=== PATIENT | female | born 1985 | race Hispanic/Latino ===

== ENCOUNTER 2017-04-22 01:28 | Inpatient (IN) | payer MEDICAID ==
[~2017-04-22] VITALS: Ht 157.5 cm; Wt 84.8 kg
[2017-04-22] MEDS ORDERED: Carboprost 250 mCg/mL Inj IM PRN (08:00)
[2017-04-22] MEDS ORDERED: Oxytocin 30 Units/500 mL LR 30 UNITS in IV Premix 1 EACH IV PRN (08:00)
[2017-04-22] MEDS ORDERED: Hemorrhage Kit, Post Partum XX ONE (08:00)
[2017-04-22] MEDS ORDERED: fentaNYL-PF 50 mCg/mL 2 mL Inj IVPUSH PRN (08:00)
[2017-04-22] MEDS ORDERED: Oxytocin 10 Unit/mL Inj IM PRN (08:00)
[2017-04-22] MEDS ORDERED: Methylergonovine 0.2 mg/mL Inj IM PRN (08:00)
[2017-04-22] MEDS ORDERED: Sodium Chloride LOK Flush 10 mL Syringe IVFLUSH PRN (08:00)
[2017-04-22] MEDS ORDERED: Ondansetron 2 mg/mL 2 mL Inj IVPUSH PRN (08:00)
[2017-04-22 08:27] LABS: Mean Corpuscular Hemoglobin 24.1 pg (27.0-35.0); Mean Corpuscular Volume 77.8 fL (81-100)
[2017-04-22] MEDS ORDERED: PREN1TAB87 PO (08:30)
[2017-04-22] MEDS ORDERED: METF850T2 PO (08:30)
[2017-04-22] MEDS ORDERED: Penicillin G K 5,000,000 UNITS/100 ML D5W IV ONE ×2 (08:45)
[2017-04-22] MEDS: Lactated Ringer's 1,000 ML IV PRN (09:14)
--- NOTE | 2017-04-22 17:02 | HP ---
[address] [address] HISTORY AND PHYSICAL PATIENT: MICAH PARRA : 1985 MR#: [id number] ADMIT: 04/22/2017 JOB ID: [id number] DATE OF ADMISSION: 04/22/2017 HISTORY OF PRESENT ILLNESS: The patient is a 31-year-old, 2, para 1, at 39 weeks and 1 day, estimated due date April 28, 2017 who comes to Labor and Delivery for induction of labor at 39+ weeks because of pre-existing type 2 diabetes and suspected macrosomia. MEDICATIONS: Include metformin 850 mg p.o. b.i.d. She has been also taking Excedrin migraine for the headaches and vitamins. The patient has occasional contractions, no complaints. heart rate resting category 1 tracing. Baseline 150 beats per minute. Good accelerations. PAST MEDICAL HISTORY: Type 2 diabetes. ALLERGIES: NKDA. SOCIAL HISTORY: Patient denies smoking, alcohol, or illicit recreational drug use. FAMILY HISTORY: Noncontributory. PHYSICAL EXAMINATION: Vital signs: Blood pressure 116/74, pulse 95, respiratory rate 20, temperature 97.2 Fahrenheit, 36.2 Celsius. General: Awake, alert, oriented x3, in no apparent distress, complaining of occasional cramps, 3/10 intensity. HEENT: PERRLA. Chest: Clear bilaterally. Good respiratory effort. Cardiovascular: Regular rate and rhythm. Abdomen is gravid, nondistended, mildly tender with occasional contractions, fundal height 40 cm. Vaginal exam: The membranes are intact. The cervix is 1-2 cm dilated, 50% effaced, station -3, Park score 3, unfavorable. Extremities: No pitting edema. LABS: WBC count 6.7, hemoglobin 10.2, hematocrit 32.9, platelet count 282. ASSESSMENT AND PLAN: A 31-year-old, 2, para 1, at 39 weeks and 1 day with type 2 diabetes, suspected macrosomia, doing well otherwise. Being admitted for induction of labor. The cervix is unfavorable. Different methods of induction were discussed. Having occasional contractions, decision was made to place Cervidil vaginal inserts and keep the patient on continuous heart rate monitoring, Chemstrips to be checked a.c. and h.s. labs were reviewed. She is group B strep positive, penicillin will be started when she is in active labor.
[2017-04-22] MEDS ORDERED: Penicillin G K 5,000,000 Units Inj ONE (17:22)
[2017-04-22] MEDS ORDERED: Dextrose 5% Minibag Plus 100 ML IV ONE (17:23)
[2017-04-22] MEDS: Penicillin G K Inj 3,000,000 UNITS in IV Premix 1 EACH IV SCH (21:15)
--- NOTE | 2017-04-23 01:59 | PCM.PNOBIP ---
Subjective Date of Service April 23, 2017 Subjective comfortable. Mild irregular contractions. Denies need for pain medications. Activity: Ambulating Independently Labs Laboratory Tests 04/22/17 07:25: White Blood Count 6.7, Red Blood Count 4.23, Hemoglobin 10.2, Hematocrit 32.9, Mean Corpuscular Volume 77.8, Mean Corpuscular Hemoglobin 24.1, Mean Corpuscular Hemoglobin Concent 31.0, Red Cell Distribution Width 14.9, Platelet Count 282 Exam Vital Signs Vital Signs Contraction frequency in minutes: MVUs: Vital Signs: VS reviewed, stable Heart Tracings Heart Tones Baseline 140 bpm Heart Rate Variability: Moderate Heart Rate Accelleration: Present Heart Rate Deceleration: Absent Heart Rate Category: I Tocometry/IUPC Contraction frequency in minutes: MVUs: Sterile Vaginal Exam Cervical Dilation: 1 cm Cervical Effacement: 40 % Station: -2 Exam Abdomen: Abdomen non-tender General: Alert, Oriented X3 OB Intrapartum Assessment/Plan Assessment A 31-year-old, 4, para 3003, at 39 weeks and 2 day with type 2 diabetes, suspected macrosomia. Second Cervidil was placed at 2300 04/22/17. GBS positive PCN started 1730 04/22/17 Ralf Guerrero MD April 23, 2017 01:59
[2017-04-23] MEDS: Penicillin G K Inj 3,000,000 UNITS in IV Premix 1 EACH IV SCH ×5 (02:11→20:27)
[2017-04-23] MEDS: Lactated Ringer's 1,000 ML IV PRN ×4 (05:57→20:40)
--- NOTE | 2017-04-23 18:10 | PCM.PNOBIP ---
Subjective Date of Service April 23, 2017 Subjective More uncomfortable- received one dose of cytotec and then spontaneously ruptured. Requesting epidural. Did have intermittent nonreassuring heart tones with late decels prior to rupture. Pain Management: Epidural Activity: Ambulating Independently Labs Laboratory Tests 04/22/17 07:25: White Blood Count 6.7, Red Blood Count 4.23, Hemoglobin 10.2, Hematocrit 32.9, Mean Corpuscular Volume 77.8, Mean Corpuscular Hemoglobin 24.1, Mean Corpuscular Hemoglobin Concent 31.0, Red Cell Distribution Width 14.9, Platelet Count 282 Exam Vital Signs Vital Signs Contraction frequency in minutes: MVUs: Heart Tracings Heart Tones Baseline 150/moderate/early and variable decels bpm Tocometry/IUPC Contraction frequency in minutes: MVUs: Sterile Vaginal Exam Cervical Dilation: 7 cms Cervical Effacement: 80 % Station: 0 Exam General: Alert, Oriented X3 OB Intrapartum Assessment/Plan Intrapartum plan: Continue expected management Danielle Joyner MD April 23, 2017 18:10
--- NOTE | 2017-04-23 18:21 | PCM.PNOBIP ---
Subjective Date of Service April 23, 2017 Subjective Patient uncomfortable on pitocin- was tima too frequently for cytotec or cervidil. Labs Laboratory Tests 04/22/17 07:25: White Blood Count 6.7, Red Blood Count 4.23, Hemoglobin 10.2, Hematocrit 32.9, Mean Corpuscular Volume 77.8, Mean Corpuscular Hemoglobin 24.1, Mean Corpuscular Hemoglobin Concent 31.0, Red Cell Distribution Width 14.9, Platelet Count 282 Exam Vital Signs Vital Signs Contraction frequency in minutes: MVUs: Heart Tracings Heart Tones Baseline 150 bpm/mod/accels to 160's Tocometry/IUPC Contraction frequency in minutes: MVUs: Sterile Vaginal Exam Cervix is still very high- 4-5/50/-3 soft, posterior Cervical Dilation: 4 cms Cervical Effacement: 50 % Station: -3 Exam General: Alert, Oriented X3 OB Intrapartum Assessment/Plan Intrapartum plan: Continue expected management (- vertex still high- continue pitocin until able to AROM) Danielle Joyner MD April 23, 2017 18:21
--- NOTE | 2017-04-23 20:53 | PCM.PNOBIP ---
Subjective Date of Service April 23, 2017 Subjective Patient is requesting a section- she is uncomfortable with contractions , she had a shoulder dystocia in her last requiring suprapubic pressure, lele positioning and delivery of posterior arm and feels stress regarding this, she has not been offered a primary c section as the history of a shoulder dystocia is not noted in her previous notes. Her first two babies were 6 and 73 last baby was 10#11 oz. Pitocin has been at 9 Labs Laboratory Tests 04/22/17 07:25: White Blood Count 6.7, Red Blood Count 4.23, Hemoglobin 10.2, Hematocrit 32.9, Mean Corpuscular Volume 77.8, Mean Corpuscular Hemoglobin 24.1, Mean Corpuscular Hemoglobin Concent 31.0, Red Cell Distribution Width 14.9, Platelet Count 282 Exam Vital Signs Vital Signs Contraction frequency in minutes: MVUs: Heart Tracings Heart Tones Baseline 150/minimal to moderate/ prolonged variable decel to 60 after period of hyperstimulation on pitocin with good recovery after Tocometry/IUPC Contraction frequency in minutes: MVUs: Sterile Vaginal Exam Cervical Dilation: 4 cms Cervical Effacement: 50 % Station: -3 Exam General: Alert, Oriented X3 OB Intrapartum Assessment/Plan Intrapartum plan: Continue expected management (- vertex still high- continue pitocin until able to AROM) Intrapartum Pain Management: May have epidural when desired, Other (We had a long discussion at bedside regarding risk of recurrent shoulder dystocia of about 15%, her diabetic status, most recent US w/ EFW 88% and RUPA of 22 and the limitations of US for evaluating weight in the third trimester- Given her history primary section has been offered, versus continued induction with either therapeutic rest or epidural overnight as the fetus is high and still only 50% effaced and not in a good position for AROM yet- her cervix is borderline on favorability but dilated enough that I do not believe a ripening balloon would work and cytotec would be only moderately useful- she has already received two doses of cervidil. After discussing her options and the risks of section- at this time she has elected to proceed with epidural placement and continued induction- her pitocin was turned off with her decel and will be restarted when her strip is category 1, we will continue with position changes and pitocin to help bring the vertex into a lower station that would be more favorable for rupture. ) Danielle Joyner MD April 23, 2017 20:53
[2017-04-23] MEDS ORDERED: Lactated Ringer's 500 ML IV ONE (21:13)
[2017-04-23] MEDS ORDERED: Atropine 1 mg/10 mL (Code) Syringe IVPUSH PRN (21:15)
[2017-04-23] MEDS ORDERED: fentaNYL 2 mCg/mL-Bupiv 0.125% 100 ML EPIDURAL SCH (21:15)
[2017-04-23] MEDS ORDERED: Ondansetron 2 mg/mL 2 mL Inj IVPUSH PRN (21:15)
[2017-04-23] MEDS ORDERED: EPHEDrine Sulfate 50 mg/mL Inj IVPUSH PRN (21:15)
--- NOTE | 2017-04-23 21:15 | PCM.HPANE ---
Patient Data Surgeon Admitting Provider:Kimberli Jiménez MD Attending Provider:Kimberli Jiménez MD Primary Care Physician:Antonino Arguello MD Other Provider:Marietta Cummins Anesthesia Reason for Visit Induction INDUCTION Ht/WT & BMI Body Mass Index Allergies Coded Allergies: No Known Allergies (Verified , 10/17/08) Past Anesthesia History Anesthesia History: Denies:: Abnormal Airway, Anesthesia Reactions, Difficult Intubation, Fam Anesthesia Reaction, Fam Malignant Hypertherm, Malignant Hyperthermia Diabetes History Hx Diabetes?: Yes Type of Diabetes: Type II Glycemic Control: Oral Medication MRSA MRSA: No Medications Hypertension Medication: No Home Meds Incl Beta Keisha: No Reported Medications Vit W-Ca,Fe,FA(<1 mg) ( Vitamins)1 Each Tablet1 Each PO DAILY 04/22/17 Metformin 850 Mg [id number] Mg PO BID Ref 0 04/22/17 History History of ENT Problems?: No HEENT History: Denies:: Abnormal Airway Cataracts Difficult Intubation Dysphagia Glaucoma Hearing Problem Sinus Problem TMJ Denture Type: None Teeth Condition: Within Normal Limits Hx of Heart Problems?: No Cardiovascular History: Denies:: AICD Abdominal Aortic Aneurism Atrial Fibrillation Cardiac Surgery Chest Pain Congestive Heart Failure Coronary Artery Disease Edema Heart Murmur Hypertension Irregular Heartbeat Pacemaker Peripheral Vascular Rheumatic Fever Thrombophlebitis Valvular Heart Disease Hx of Respiratory Problem?: No Respiratory History: Denies:: Asthma COPD Chest Surgery Cough Dyspnea Emphysema Hemoptysis Oxygen Administration Pneumonia Pulmonary Embolism Tuberculosis Use of C-PAP Machine Use of Inhalers / NEBS Hx Neurologic Problems?: No Neurological History: Denies:: Alzheimer's Disease CVA Dementia Dizziness Headaches Multiple Sclerosis Parkinson's Disease Peripheral Neuropathy Seizures TIA Hx of GI Problems?: No Gastrointestinal History: Denies:: Cirrhosis Diverticulitis Gall Bladder Disease Gastroesphageal Reflux Gastrointestinal Bleeding Heartburn Hepatitis Hiatal Hernia Liver Disease Rectal Bleeding Hx of Problems?: No Genitourinary History: Denies:: HX of Hemodialysis Kidney Stones Urinary Tract Infection HX of Peritoneal Dialysis: No Female Hx: Denies:: Currently Endometriosis Pelvic Inflammatory Problems with Breasts? Skin History: Denies:: History Skin Disorders? Pressure Ulcers Hx Musculoskeletal Problems?: No Musculoskeletal History: Denies:: Back Injury Degenerative Joint Fibromyalgia Joint Replacement Musculoskeletal Trauma Myasthenia Gravis Osteoarthritis Rheumatoid Arthritis Systemic Lupus Hx of Psycho/Social Problems?: No Psycho Social History: Denies:: Anxiety Bipolar Disorder Hx Depression Suicide Attempt Hx Surgeries?: No Other History: Denies:: Cancer Endocrine Disease Hospitalization Thyroid Disease History Blood Transfusions: Denies:: Accept Blood Products? Blood Transfuse Reaction Blood Transfusions Hx Alcohol Use: NoHx Substance Use: No Smoking Status: Never Smoker Stop/Bang RANDY Risk Assessment: Low Risk, <3 Yes Risk Assessment Category Category 1A: Patient has history of documented sleep apnea, and HAS NOT received any narcotic, sedative or anesthesia administration during this stay. Category 1B: Patient has history of documented sleep apnea, and HAS received any narcotic , sedative or anesthesia administration during this stay Category 2: Patient has SUSPECTED Obstructive Sleep Apnea, and HAS received any narcotic , sedative or anesthesia administration during this stay. Category 3: Patient has SUSPECTED Obstructive Sleep Apnea and HAS NOT received narcotic, sedative or anesthesia administration during this stay. Category 4: Outpatient in Procedural Areas with known sleep apnea or who screen positive for High Risk via the STOP/BANG questionnaire. Exam Exam General Appearance: Alert, Oriented X3 HEENT/AIRWAY: MP 1 Lungs: Clear to Auscultation Heart: Exam Unremarkable Meds/Labs/Diagnostics Admission Meds Current Medications Dinoprostone (Cervidil Vaginal Insert) 10 mg ONCE ONCE VAGINAL Last administered on 04/22/17t 23:05; Start 04/22/17 at 22:50; Stop 04/22/17 at 22:51 ; Status DC Labs Test 04/22/17 07:25 White Blood Count 6.7th/mm3 (3.8-10.1) Red Blood Count 4.23mil/mm3 (3.90-5.20) Hemoglobin 10.2g/dL (12.0-15.6) Hematocrit 32.9% (35.0-46.0) Mean Corpuscular Volume 77.8fL (81-100) Mean Corpuscular Hemoglobin 24.1pg (27.0-35.0) Mean Corpuscular Hemoglobin Concent 31.0% (32.0-37.0) Red Cell Distribution Width 14.9% (12.3-15.4) Platelet Count 282bil/L (150-400) Plan Impression Patient chart reviewed, patient interviewed and anesthestic plan with risks, benefits, and alternatives discussed, and informed consent obtained. NPO per Anesth. Guidelines: Yes ASA Physical Status: ASA1 Normal Healthy Anesthetic Plan: Epidural Bene/Risks/Altern/Consents: Yes HP Complete Prior to Induction: Yes Vincent Best MD April 23, 2017 21:15
[2017-04-24] MEDS: Penicillin G K Inj 3,000,000 UNITS in IV Premix 1 EACH IV SCH ×5 (00:09→17:18)
[2017-04-24] MEDS ORDERED: Oxytocin 30 Units/500 mL LR Premix IV SCH (02:30)
--- NOTE | 2017-04-24 04:51 | PCM.PNOBIP ---
Subjective Date of Service April 24, 2017 Subjective Called for decel to 60's x8 minutes with minimal improvement after repositioning. Has been on pitocin overnight and spontaneously ruptured with pitocin at 12- FHT now improved. Pain Management: Epidural Labs Laboratory Tests 04/22/17 07:25: White Blood Count 6.7, Red Blood Count 4.23, Hemoglobin 10.2, Hematocrit 32.9, Mean Corpuscular Volume 77.8, Mean Corpuscular Hemoglobin 24.1, Mean Corpuscular Hemoglobin Concent 31.0, Red Cell Distribution Width 14.9, Platelet Count 282 Exam Vital Signs Vital Signs Contraction frequency in minutes: MVUs: Vital Signs: VS reviewed, stable Heart Tracings Heart Tones Baseline 150 bpm/moderate/occasional early decels Tocometry/IUPC Contraction frequency in minutes: MVUs: Sterile Vaginal Exam Cervical Dilation: 5 cms Cervical Effacement: 80 % Station: -2 Exam General: Alert, Oriented X3 OB Intrapartum Assessment/Plan Intrapartum plan: Continue expected management ( heart rate decel s/p SROM - now improved to baseline. Cervix is now 5/80/-2 vertex is still high, copious amniotic fluid noted- will continue expectant management restart pitocin if needed after 20 minutes of Cat 1 FHT) Danielle Joyner MD April 24, 2017 04:51
[2017-04-24] MEDS: Lactated Ringer's 1,000 ML IV SCH ×5 (08:20→21:13)
[2017-04-24] MEDS ORDERED: Dexamethasone 4 mg/mL Inj ONE (10:09)
[2017-04-24] MEDS ORDERED: Bupivacaine-MPF 0.25% 30 mL Inj ONE (10:09)
[2017-04-24] MEDS ORDERED: Oxytocin 10 Unit/mL Inj ONE (10:09)
[2017-04-24] MEDS ORDERED: Ondansetron 2 mg/mL 2 mL Inj ONE (10:09)
[2017-04-24] MEDS: 0.9% Sodium Chloride 1,000 ML IRRIGATION SCH ×2 (12:22→13:13)
[2017-04-24] MEDS: Sodium Chloride LOK Flush 10 mL Syringe IVFLUSH SCH (16:30)
[2017-04-24] MEDS ORDERED: Sodium Citrate-Citric Acid 15 mL Solution ONE (16:38)
[2017-04-24] MEDS ORDERED: CeFAZolin Inj 2 GM in IV Premix 1 EACH IV ONE (18:35)
[2017-04-24] MEDS ORDERED: Morphine PF 1 mg/mL 10 mL Inj ONE (18:57)
[2017-04-24] MEDS ORDERED: fentaNYL-PF 50 mCg/mL 2 mL Inj IVPUSH PRN (19:45)
[2017-04-24] MEDS ORDERED: Dexamethasone 4 mg/mL Inj IVPUSH PRN (19:45)
[2017-04-24] MEDS ORDERED: Ondansetron 2 mg/mL 2 mL Inj IVPUSH PRN (19:45)
[2017-04-24] MEDS ORDERED: EPHEDrine Sulfate 50 mg/mL Inj IVPUSH PRN (19:45)
[2017-04-24] MEDS ORDERED: Morphine PF 1 mg/mL 10 mL Inj EPIDURAL ONE (19:45)
[2017-04-24] MEDS ORDERED: Atropine 0.4 mg/mL Inj IV PRN (19:45)
--- NOTE | 2017-04-24 20:06 | PCM.ANEP1 ---
Post Anesthesia PACU Phase 1 Assessment Anesthetic Administered: Epidural Level of Alertness: Awake, talking BROWN's with Equal Strength: Yes Pain: No Pain Scale Score: 0 Nausea or Vomiting: No CV Function & Hydration Stable: Yes Airway Device: Oxygen Delivery: Room Air Lungs: Clear to Auscultation Dermatome Level: T10 (Umbilicus) PACU Phase 2 Assessment Complications: No Follow up Care: N/A Patient Instructions Provided: Yes Dakota Lopes MD April 24, 2017 20:06
[2017-04-24] MEDS ORDERED: LANOlin HPA 7 Gm Ointment TOPICAL PRN (20:10)
[2017-04-24] MEDS ORDERED: Oxytocin 10 Unit/mL Inj IM PRN (20:10)
[2017-04-24] MEDS ORDERED: hydrOXYzine Pamoate 25 mg Capsule PO PRN (20:10)
[2017-04-24] MEDS ORDERED: Sodium Chloride LOK Flush 10 mL Syringe IVFLUSH PRN (20:10)
[2017-04-24] MEDS ORDERED: Hemorrhage Kit, Post Partum XX ONE (20:10)
[2017-04-24] MEDS ORDERED: Methylergonovine 0.2 mg/mL Inj IM PRN (20:10)
[2017-04-24] MEDS ORDERED: Carboprost 250 mCg/mL Inj IM PRN (20:10)
[2017-04-24] MEDS ORDERED: Acetaminophen IV 1,000 MG in IV Premix 1 EACH IV PRN (20:10)
[2017-04-24] MEDS ORDERED: Oxytocin 30 Units/500 mL LR 30 UNITS in IV Premix 1 EACH IV PRN (20:10)
--- NOTE | 2017-04-24 22:15 | OP ---
[address] [address] OPERATIVE REPORT PATIENT: MICAH PARRA : 1985 MR#: [id number] ADMIT: 04/22/2017 JOB ID: [id number] DATE OF SURGERY: 04/24/2017 PROCEDURE: Primary low transverse section. PREOPERATIVE DIAGNOSIS(ES): 1. Intrauterine , 39 weeks. 2. Gestational diabetes. 3. Failed induction of labor and nonreassuring heart rate. POSTOPERATIVE DIAGNOSIS(ES): 1. Intrauterine , 39 weeks. 2. Gestational diabetes. 3. Failed induction of labor and nonreassuring heart rate. SURGEON: Antonino Arguello MD HOSTEL MANAGER: Christy Calderón MD. Assistance of Dr. Calderón was necessary to provide proper exposure, handling of the tissue, visualization of anatomy and helping with delivery of the . ANESTHESIA: Epidural was dosed to surgical level. ESTIMATED BLOOD LOSS: 700 mL. ESTIMATED URINE OUTPUT: 300 mL. FLUIDS: 2 L of Ringer lactate. COMPLICATIONS: None. INDICATION FOR THE PROCEDURE: The patient is a 31-year-old, 4, para 4 now who was admitted for induction of labor because of gestational diabetes A2 that was controlled with metformin. The patient declined initially and was induced, progressed to full dilation. The patient had repetitive variable deceleration, had amnioinfusion started with a total amount of 1500 cc of lactated Ringer given. She arrested in descent at station +1. The fetus developed repetitive decelerations, some of them prolonged variable decelerations, and tachycardia. With pushing the decelerations were becoming longer and deeper and decision was made to proceed with primary low-transverse section. The risks and benefits of the procedure were explained to the patient and informed consent was obtained. PROCEDURE IN DETAIL: The patient was brought to the operating room, where she underwent dosing of epidural to a surgical level. She received preoperative antibiotics. She was prepped and draped in usual surgical fashion. Time-out was performed verifying correct patient, correct procedure. Pfannenstiel skin incision was made with a scalpel and carried down to the underlying layer of rectus muscle fascia using Bovie. The rectus muscle fascia was incised with the Bovie and extended laterally using Kern scissors. The upper aspect of the incision was grasped with two Lloyd clamps and the rectus muscle fascia was from the underlying rectus muscle using Kern scissors. In a similar fashion, the lower aspect of the incision was grasped with two Lloyd clamps and the rectus muscle fascia was from the underlying rectus muscle using Kern scissors. The rectus muscles were in the midline, the peritoneum was identified, tented up, and entered sharply with Metzenbaum scissors. A bladder blade was introduced. Using scalpel, a lower segment transverse uterine incision was made and extended laterally. The head of the was identified, the bladder blade was removed, and male was atraumatically delivered with Apgars 7 at one minute and 9 at five minutes. The cord was clamped and cut, and the was handed off to the waiting pediatric immunologist. Cord blood was sent. The placenta was removed by application of fundal pressure and discarded. The uterus was exteriorized and cleared from all the blood clots and debris using a dry laparotomy sponge. The uterine incision was repaired with two layers of 0 Monocryl, the first layer in a running, locking fashion, the 2nd an imbricating layer in a nonlocking fashion. The pelvis was irrigated with warm normal saline and the uterus was repositioned back into the abdomen. The patient received 250 mcg of Hemabate to prevent atony and to provide better uterine contractions since it was a little boggy. The rectus muscles and peritoneum were reapproximated in the midline using 3-0 Vicryl. 0-Vicryl was used to close the rectus muscle fascia. Five interrupted 3-0 Vicryl sutures were placed to reapproximate subcuticular tissue and Shannon fascia. The skin was closed with Monocryl. Dermabond glue was applied and hemostatic dressing was applied. The patient was repositioned back into the supine position. She tolerated the procedure well, and was transferred to the recovery room in stable condition.
[2017-04-25] MEDS: Sodium Chloride LOK Flush 10 mL Syringe IVFLUSH SCH ×5 (00:30→16:30)
[2017-04-25] MEDS: Lactated Ringer's 1,000 ML IV SCH ×2 (04:07→12:07)
[2017-04-25 06:51] LABS: Mean Corpuscular Hemoglobin 24.3 pg (27.0-35.0); Mean Corpuscular Volume 74.3 fL (81-100)
[2017-04-25] MEDS: Ascorbic Acid 500 mg Tablet PO SCH (09:34)
[2017-04-25] MEDS: oxyCODONE-Acetamin 5-325 mg Tablet PO PRN ×3 (09:34→17:52)
--- NOTE | 2017-04-25 10:21 | PROG NOTE ---
[address] [address] PROGRESS NOTE PATIENT: MICAH PARRA : 1985 MR#: [id number] ADMIT: 04/22/2017 JOB ID: [id number] DATE: 04/25/2017 SUBJECTIVE: This patient is doing well this morning. She is postoperative day #1 from a primary low transverse section due to nonreassuring heart tones with prolonged deep variable decelerations during an induction of labor for type 2 diabetes mellitus. This morning she is doing well. She has a catheter in place. She has not been out of bed or ambulated much yet. Her is doing well and is at the bedside with her. Her lochia is minimal. She is tolerating a regular diet without any nausea or vomiting. She has no other complaints this morning. She is not passing any flatus. PHYSICAL EXAMINATION: She is afebrile and her vital signs are stable. In general, she is awake, alert, oriented, in no acute distress. Her abdomen is soft. It is nontender. It is appropriately distended. Her fundus is firm below the umbilicus. Her incision is clean, dry, and intact with a pressure bandage in place. I did not remove the pressure bandage. Her extremities show no tenderness or edema. LABORATORY DATA: This morning her white count is 9.3. Her hemoglobin has dropped from 10.2 preoperatively down to 8.1. Her platelets are 228. ASSESSMENT: This is a 31-year-old, -0-0-4 female postop day 1 following a primary low transverse section due to nonreassuring heart tones after prolonged induction of labor at 39 weeks due to a history of type 2 diabetes mellitus. PLAN: At this point in time, she is doing well. We will remove her Camargo catheter this morning and have her continue to work towards ambulation and the continued meeting of postoperative goals. She is a type 2 diabetic. Her metformin has been restarted and we will begin doing fasting and 1 hour postprandial Accu-Cheks on her to ensure that her blood sugars are stable. She is anemic this morning with a hemoglobin of 8.1, and iron will be started 3 times daily with Colace as a stool softener. She is otherwise doing very well and will anticipate discharge home tomorrow. EMILY
[2017-04-26] MEDS: oxyCODONE-Acetamin 5-325 mg Tablet PO PRN ×5 (05:09→21:50)
[2017-04-26] MEDS: Ascorbic Acid 500 mg Tablet PO SCH (09:02)
--- NOTE | 2017-04-26 19:18 | PCM.DIMED ---
Discharge Instructions Date of Service April 26, 2017 Dates of Hospitalization April 22, 2017 at 06:22 Diet Discharge Diet: No restrictions Activity Discharge Activity: No restrictions Call your provider Call your provider for: Fever or Chills, Shortness of breath, Bleeding, Chest pain, Vomitting, Excessive diarrhea, Weakness (unilateral) Patient Instructions Follow-up with PCP in: 6 weeks Antonino Arguello MD April 26, 2017 19:17
[2017-04-26] MEDS ORDERED: METF500T PO (19:20)
[2017-04-26] MEDS ORDERED: IBUP800T28 PO (19:20)
[2017-04-26] MEDS ORDERED: OXYC1TAB24 PO (19:20)
[2017-04-26] MEDS ORDERED: DOCU-41 PO (19:20)
[2017-04-26] MEDS ORDERED: FERR-74 PO (19:20)
[2017-04-26 20:03] VITALS: BP 112/63; PULSE 80; RESP 16
[2017-04-26] MEDS ORDERED: Carboprost 250 mCg/mL Inj IM ONE (22:03)
[2017-04-26] MEDS ORDERED: Methylergonovine 0.2 mg/mL Inj ONE (22:03)
--- NOTE | 2017-04-27 05:29 | DIS ---
[address] [address] DISCHARGE SUMMARY PATIENT: MICAH PARRA : 1985 MR#: [id number] ADMIT: 04/25/2017 JOB ID: [id number] DIS: 04/26/2017 ADMITTING DIAGNOSES: 1. Intrauterine at 39+ weeks. 2. Diabetes type 2. 3. Failed induction of labor. 4. Nonreassuring heart rate. DISCHARGE DIAGNOSES: 1. Term . 2. Diabetes type 2. 3. Failed induction of labor. 4. Status post primary low transverse delivery. HISTORY: The patient is a 31-year-old, 4, para 4 now who was admitted for induction of labor because of gestational diabetes type 2, she has been getting metformin. The patient also has a history of prior delivery with macrosomia and shoulder dystocia. She was willing to try a trial of labor after , she was explained the risks of recurrent shoulder dystocia being about 16% to 17%. She insisted on trial of labor. Induction was started with cervical ripening agents and followed with Pitocin. The patient eventually progressed to full dilation. She started pushing in the late afternoon of April 24, 2017, the heart rate tracing was nonreassuring. The infant had prolonged repetitive variable decelerations and did not tolerate 2nd stage of labor well, subsequently in addition to prolonged decelerations, tachycardia developed. The decision was made to proceed with primary low transverse delivery. Delivery went uncomplicated, delivered male, with Apgars 7 at one minute and 9 at five minutes. The patient was transferred to the floor and gradually started on regular diet and metformin. On day one, April 25, 2017, the patient was stable, afebrile. Fasting blood sugars were normal, post prandials were normal. On postoperative day one, CBC showed normal WBC count 9.3, hematocrit 24.8, stable platelet count 228. The patient received supplemental iron. She was hemodynamically stable. There was no vaginal bleeding. The fundus was firm. The pain was moderate controlled with Motrin and Percocet. On postoperative day two, April 26, 2017, the patient was stable, ambulating and breast feeding. The dressing was removed. Incision was dry, clean and intact. The fundus was firm. There was no bleeding and no vaginal discharge. There were no problems with breast feeding. The blood glucose levels were slightly abnormal with the highest postprandial being 147. The patient was discharged home on postoperative day two, April 26, 2017, in stable condition with all discharge criteria met. DISCHARGE MEDICATIONS: She received discharge medications includin. Metformin 500 mg p.o. b.i.d. 2. Percocet 5/325 mg p.o. t.i.d. p.r.n. 3. Motrin 800 mg p.o. t.i.d. p.r.n. 4. Colace 100 mg p.o. b.i.d. 5. Ferrous sulfate 325 mg p.o. daily. FOLLOW UP: Followup visit in OB clinic is scheduled in six weeks.
== END 2017-04-26 22:04 | disposition home or self-care (01) | DRG 540 ==
LOC: FBC 06:22 → UNDODISIN 04-26 20:35
PROVIDERS: ADMIT Obstetrics & Gynecology; ATTEND Legal Medicine
PROC: 3E0P7GC Introduction of Other Therapeutic Substance into Female Reproductive, Via Natural or Artificial Opening (ICD-10-PCS; 2017-04-22)
PROC: 10D00Z1 Extraction of Products of Conception, Low, Open Approach (ICD-10-PCS; principal; 2017-04-24 18:49)
DX: O76 Abnormality in fetal heart rate and rhythm complicating labor and delivery (principal); O24.12 Pre-existing type 2 diabetes mellitus, in childbirth; E11.9 Type 2 diabetes mellitus without complications; Z3A.39 39 weeks gestation of pregnancy; Z37.0 Single live birth; Z79.4 Long term (current) use of insulin; O99.824 Streptococcus B carrier state complicating childbirth; O61.0 Failed medical induction of labor; O32.4XX0 Maternal care for high head at term, not applicable or unspecified